=== PATIENT | male | born 1955 | race Caucasian/White ===

== ENCOUNTER 2021-01-09 08:45 | Outpatient (REF) | payer BC, SELFPAY ==
[2021-01-09 09:12] LABS: MANUAL DIFF FLAG NO
[2021-01-09 09:24] LABS: Basophils Percent Auto 0.8 % (0-2); Eosinophils Absolute Auto 0.2 X10*3/uL (0.0-0.4); Eosinophils Percent Auto 3.8 % (0-4); Hematocrit 45.3 % (42-52); Hemoglobin 15.4 g/dl (14.0-18.0); Imm Gran Abs Auto 0.01 X10*3/uL (0.00-0.03); Imm Gran Pct Auto 0.2 % (0.0-0.4); Lymphocytes Absolute Auto 1.4 X10*3/uL (1.2-4.9); Lymphocytes Percent Auto 26.9 % (20-40); Mean Corpuscular Volume 91.3 fL (80-98); Mean Platelet Volume 9.8 fL (9.4-12.4); Monocytes Absolute Auto 0.5 X10*3/uL (0.1-1.2); Monocytes Percent Auto 8.7 % (2-11); Neutrophils Absolute Auto 3.2 X10*3/uL (2.0-8.3); Neutrophils Percent Auto 59.6 % (45-73); Platelet Count 182 X10*3/uL (160-400); Red Blood Count 4.96 X10*6/uL (4.60-5.80); White Blood Count 5.3 X10*3/uL (4.8-10.8)
[2021-01-09 09:48] LABS: Alanine Aminotransferase 22 U/L (0-40); Albumin Level 4.2 g/dL (3.5-5.0); Alkaline Phosphatase 52 U/L (39-117); Anion Gap 10 (12-20); Aspartate Amino Transferase 16 U/L (5-37); Bilirubin Total 0.8 mg/dL (0.0-1.0); Blood Urea Nitrogen 13 mg/dL (9-16); Calcium 9.2 mg/dL (8.4-10.2); Carbon Dioxide 28 mmol/L (22-29); Chloride 106 mmol/L (96-108); Cholesterol 168 mg/dL; Estimated Glomerular Filt Rate > 60; Glucose Fasting 105 mg/dL (60-99); HDL Cholesterol 58 mg/dL; LDL Cholesterol Calculated 99 mg/dl; Potassium 4.1 mmol/L (3.3-5.1); Sodium 140 mmol/L (135-145); Total Protein 7.1 g/dL (6.5-8.0); Triglycerides 56 mg/dL
[2021-01-09 10:13] LABS: Prostate Specific Antigen Scr 2.39 ng/mL (<0.05-4.0); Thyroid Stimulating Hormone 1.46 uIU/mL (0.32-4.0)
== END 2021-01-09 08:46 | disposition home or self-care (01) ==
LOC: HO.LAB 08:45
PROVIDERS: PCP Internal Medicine; Visit Provider Internal Medicine
DX: Z00.00 Encounter for general adult medical examination without abnormal findings (principal); Z12.5 Encounter for screening for malignant neoplasm of prostate; E03.9 Hypothyroidism, unspecified; R35.1 Nocturia; E11.9 Type 2 diabetes mellitus without complications
CPT/HCPCS: 36415; 80053; 80061; 84153; 84443; 85025

== ENCOUNTER 2022-01-25 09:35 | Outpatient (REF) | payer BC, SELFPAY ==
[2022-01-25 09:52] LABS: MANUAL DIFF FLAG NO
[2022-01-25 10:31] LABS: Basophils Absolute Auto 0.1 X10*3/uL (0.0-0.2); Eosinophils Absolute Auto 0.2 X10*3/uL (0.0-0.4); Eosinophils Percent Auto 3.2 % (0-4); Hematocrit 47.1 % (42.0-52.0); Hemoglobin 15.7 g/dl (14.0-18.0); Imm Gran Abs Auto 0.01 X10*3/uL (0.00-0.03); Imm Gran Pct Auto 0.2 % (0.0-0.4); Lymphocytes Absolute Auto 1.5 X10*3/uL (1.2-4.9); Mean Corpuscular HGB Conc 33.3 g/dl (31.0-36.0); Mean Corpuscular Hemoglobin 30.2 pg (27.0-33.0); Mean Corpuscular Volume 90.6 fL (80.0-98.0); Mean Platelet Volume 9.8 fL (9.4-12.4); Monocytes Absolute Auto 0.4 X10*3/uL (0.1-1.2); Monocytes Percent Auto 7.6 % (2-11); Neutrophils Absolute Auto 2.9 x10*3/uL (2.0-8.3); Platelet Count 199 X10*3/uL (160-400); Red Cell Distribution Width 11.9 % (11.0-16.0)
[2022-01-25 11:09] LABS: Alanine Aminotransferase 18 U/L (0-40); Albumin Level 4.5 g/dL (3.5-5.0); Alkaline Phosphatase 53 U/L (39-117); Anion Gap 16 (12-20); Aspartate Amino Transferase 15 U/L (5-37); Blood Urea Nitrogen 16 mg/dL (9-16); Calcium 9.5 mg/dL (8.4-10.2); Carbon Dioxide 25 mmol/L (22-29); Chloride 105 mmol/L (96-108); Cholesterol 181 mg/dL; Estimated Glomerular Filt Rate > 60; Glucose Fasting 98 mg/dL (60-99); HDL Cholesterol 59 mg/dL; LDL Cholesterol Calculated 113 mg/dl; Potassium 4.5 mmol/L (3.3-5.1); Sodium 141 mmol/L (135-145); Total Protein 7.5 g/dL (6.5-8.0); Triglycerides 48 mg/dL
[2022-01-25 11:16] LABS: Prostate Specific Antigen Scr 2.39 ng/mL (<0.05-4.0)
== END 2022-01-25 09:36 | disposition home or self-care (01) ==
LOC: HO.LAB 09:35
PROVIDERS: PCP Internal Medicine; Visit Provider Internal Medicine
DX: Z00.00 Encounter for general adult medical examination without abnormal findings (principal); I10 Essential (primary) hypertension; E78.5 Hyperlipidemia, unspecified; E03.9 Hypothyroidism, unspecified; Z13.0 Encounter for screening for diseases of the blood and blood-forming organs and certain disorders involving the immune mechanism; Z12.5 Encounter for screening for malignant neoplasm of prostate
CPT/HCPCS: 36415; 80053; 80061; 84153; 84443; 85025

== ENCOUNTER 2022-03-01 15:34 | Outpatient (REF) | payer BC, SELFPAY ==
--- NOTE | ~2022-03-01 | US_ITS ---
EXAMINATION: US SCROTUM CLINICAL INFORMATION: Lower abdominal pain, unspecified. COMPARISON: None TECHNIQUE: A sonogram of the scrotum was performed assessing lincoln-scale appearance and color Doppler flow. Spectral Doppler analysis of the arterial and venous flow were performed in the testes bilaterally. FINDINGS: RIGHT: Right testicle measures 4.3 x 2.2 x 3.2 cm, volume 15.6 mL. No focal testicular parenchymal lesions are visualized. Spectral Doppler analysis of the arterial and venous flow is normal in the right testis. Right epididymal head is normal in size. A 0.4 cm appendix testis is noted. No right varicocele is seen. Right epididymal Doppler flow is normal. There is a moderate size hydrocele with internal echogenic debris. LEFT: Left testicle measures 4.2 x 2.7 x 3.0 cm, volume 17.5 mL. There is a 0.1 cm hyperechoic focus in the testicular parenchyma, likely representing a calcification. Spectral Doppler analysis of the arterial and venous flow is normal in the left testis. Left epididymal head is normal in size. There is a 0.3 cm appendix testis. Left epididymal Doppler flow is normal. There is a small to moderate size hydrocele with internal echogenic debris. There is a small varicocele. US/US scrotum IMPRESSION: 1. No evidence of testicular torsion at the moment of this examination. 2. Small hyperechoic focus in the left testicular parenchyma, possibly a calcification, recommend a follow-up ultrasound in 6-12 months to reassess. 3. Moderate-sized bilateral hydroceles with internal echogenic debris. Recommend clinical correlation for superimposed infection. 4. Small left varicocele. 5. Bilateral appendix testes.
== END 2022-03-01 15:35 | disposition home or self-care (01) ==
LOC: HO.US 15:34
PROVIDERS: Visit Provider Internal Medicine
DX: R10.30 Lower abdominal pain, unspecified (principal)
CPT/HCPCS: 76870

== ENCOUNTER 2023-01-16 09:39 | Outpatient (AMB) | payer BC, SELFPAY ==
--- NOTE | 2023-01-16 09:47 | MHC.PC.OV ---
Vital Signs 01/16/23 09:48 Height 5 ft 4 in Weight 169 lb 2 oz BMI 29.0 BP 110/72 Blood Pressure Location Lt brachial Position Sitting Pulse 78 Pulse Source Pulse Oximeter Pulse Oximetry (%) 98 Oxygen Delivery Method Room Air Intake Visit Reasons: PE Intake Note: Patient is here today for a physical. Book Editor Required: No District Administrative Assistant: Not Required per policy Accompanied by: Self / Same As Patient Allergies penicillin V Allergy (Unknown, Verified 01/16/23 09:48) severe diarrhea Medication List - Last Reconciled 01/17/23 by Catrachito Wayne MD clotrimazole 1% 1 appl topical BID 4 weeks clotrimazole-betamethasone 1-0.05 % 1 appl topical BID 2 weeks Tobacco use date assessed: 01/16/23 Fall risk assessment: No Falls in past year Last assessed Fall Risk: 01/16/23 Dental Screening Dental Screen Date: 01/16/23 Did you have a dental visit in the last 12 months?: No Did you have a dental problem in the last 6 months where you did not have access to dental care?: No Was dental information given to patient?: No HPI PE HPI Details healthy no meds PFSH Surgical History History of colonoscopy History of cochlear implant Family History Mother No problems noted. Father No problems noted. Social History (Updated 01/16/23 @ 09:52 by GERALD Elam) Housing: House Alcohol intake: current Alcohol intake frequency: a few times a month Patient Tobacco Use Status: Never used Tobacco Tobacco use type: Cigarette e-Cigarette/Vaping Use: Never Used Second Hand Smoke Exposure: Yes service: No Current occupational status: retired and disabled Cognitive needs: No Hearing needs: Yes (hearing aide) Vision needs: Yes (glasses) Questionnaire PHQ-9 Over the last 2 weeks, how often have you been bothered by any of the following problems? 1. Little interest or pleasure in doing things: not at all 2. Feeling down, depressed, or hopeless: not at all 3. Trouble falling or staying asleep, or sleeping too much: not at all 4. Feeling tired or having little energy: not at all 5. Poor appetite or overeating: not at all 6. Feeling bad about yourself - or that you are a failure or have let yourself or your family down: not at all 7. Trouble concentrating on things, such as reading the newspaper or watching television: not at all 8. Moving or speaking so slowly that other people could have noticed. Or the opposite - being so fidgety or restless that you have been moving around a lot more than usual: not at all 9. Thoughts that you would be better off or of hurting yourself in some way: not at all Total score: 0 Depression Screening Interpretation: Negative Depression Screening Done: Yes 28394 - PHQ-9 Billing: Yes Source: Developed by Drs. Orville Baum, Veronica Arellano, Dominic Kovacs and colleagues, with an educational mati from [employer]. Thrive Questionnaire Date Thrive assessed: 01/16/23 I am a: Patient What is your living situation today?: I have a steady place to live Within the past 12 months, did the food you bought not last and you didn't have the money to get more?: Never true Within the past 12 months, did you worry whether your food would run out before you got money to buy more?: Never true Do you have trouble paying for medicines?: No Do you have trouble getting transportation to medical appointments?: No Do you have trouble paying your heating and electricity bill?: No Do you have trouble taking care of your child, family member or friend?: No Do you have trouble with day-to-day activities such as bathing, preparing meals, shopping, managing finances, etc.?: No Are you currently unemployed and looking for a job?: No Are you interested in more education?: No Currently or been in a relationship where the following occur: no concerns reported AUDIT C Alcohol Use Questionnaire (AUDIT-C) 1. How often do you have a drink containing alcohol?: Monthly or less 2. How many drinks containing alcohol do you have on a typical day when you are drinking?: 1 or 2 Total Score: 1 Score Reviewed/Action Taken: Yes HAL-7 AMB Questionnaire HLA-7 Date HAL - 7 assessed: 01/16/23 Feeling nervous, anxious, or on edge: 0 = Not at all Not being able to stop or control worryin = Not at all Worrying too much about different things: 0 = Not at all Trouble relaxin = Not at all Being so restless that it is hard to sit still: 0 = Not at all Becoming easily annoyed or irritable: 0 = Not at all Feeling afraid as if something awful might happen: 0 = Not at all Total HAL-7 score (0-4 normal; 5-9 mild; 10-14 moderate; 15-21 severe): 0 Source: Developed by Drs. Orville Baum, Veronica Arellano, Dominic Kovacs and colleagues, with an educational mati from [employer]. HAL-7 Assessment Billing HAL-7 Assessment Tool: HAL-7 Assessment 48287 Review of Systems Const Denies chills, Denies fatigue, Denies headache(s) and Denies weight loss Eyes Denies change in vision, Denies diplopia and Denies eye pain ENT Denies vertigo, Denies dizziness, Denies headache(s) and Denies nasal discharge Card Denies chest pain, Denies rapid heart rate and Denies dyspnea on exertion Resp Denies chest congestion, Denies cough, Denies pain with cough and Denies dyspnea on exertion GI Denies abdominal pain, Denies hematochezia and Denies change in bowel habits Musc Denies myalgias, Denies arthralgias and Denies joint swelling Skin/Breast Denies lesions and Denies unusual bruising Neuro Denies vertigo, Denies dizziness, Denies headache(s) and Denies focal weakness Endo Denies fatigue Physical exam (Primary Care) Vital Signs: Last Vital Signs Pulse 78 01/16/23 09:48 BP 110/72 01/16/23 09:48 Pulse Ox 98 01/16/23 09:48 Oxygen Delivery Method Room Air 01/16/23 09:48 BMI result Body Mass Index 29.0 Tobacco/Smoking Status: Tobacco use Status Tobacco use date assessed 01/16/23 01/16/23 09:53 Patient Tobacco Use Status Never used Tobacco 01/16/23 09:53 Tobacco use type Cigarette 01/16/23 09:53 e-Cigarette/Vaping Use Never Used 01/16/23 09:53 PHQ-9: PHQ-9 Score PHQ-9: Total score 0 01/16/23 09:53 Depression Screening Interpretation: Negative Thrive Assessment: Date of Thrive Assessment Date Thrive assessed 01/16/23 01/16/23 09:53 Currently or been in a relationship where the following occur: no concerns reported Const General: cooperative, healthy appearing and no acute distress Orientation/consciousness: oriented to person, oriented to place and oriented to time HENMT Head: Yes normal to inspection, Yes normocephalic and Yes atraumatic Mouth: Normal oral and palatal mucosa present and tongue normal Throat: Yes posterior oropharynx normal and Yes uvula midline Eyes General: appearance normal, both eyes and all related structures Neck Neck: Yes normal visual inspection, Yes full ROM and Yes no lymphadenopathy Thyroid: Thyroid normal Carotids: normal carotid upstroke Chest Chest palpation & inspection: normal inspection of the chest Resp Effort & Inspection: normal respiratory effort and able to speak in complete sentences Auscultation: clear to auscultation bilaterally Cardio Jugular venous distension: no JVD Palpation: normal PMI Rate: regular rate Rhythm: regular rhythm Heart sounds: S1 normal heart sound present and S2 normal heart sound present GI Inspection: Yes normal to inspection Palpation (GI): Soft to palpation and No hepatosplenomegaly present Auscultation: normal bowel sounds General: Yes no CVA tenderness Back/Spine/Pelvis Back: no CVA tenderness Skin General skin exam: no rashes or lesions noted Neuro General: oriented to person, oriented to place and oriented to time Extrem General: Yes normal to inspection and Yes full ROM Assessment and Plan Assessment & Plan (1) Physical exam: Code(s): Z00.00 - Encounter for general adult medical examination without abnormal findings Plan: do labs Orders: Orders Complete Blood Count Auto Diff 01/16/23 D64.9 - Anemia, unspecified Comprehensive [place]. Panel Fast 01/16/23 N28.9 - Disorder of kidney and ureter, unspecified Lipid Panel 01/16/23 E78.5 - Hyperlipidemia, unspecified Prostate Specific Antigen Scr 01/16/23 Z00.00 - Encounter for general adult medical examination without abnormal findings Referrals Ophthalmology Referral H02.9 - Unspecified disorder of eyelid Coding Level of Care Code Est Pt Prev Care >65y(15802) Diagnoses Physical exam Z00.00 Additional Codes HAL-7 Assessment Billing - HAL-7 Assessment Tool: HAL-7 Assessment [id number] ([id number])
[2023-01-16 09:48] VITALS: BP 110/72; PULSE 78; O2SAT 98; BMI 29.0
== END 2023-01-16 10:01 | disposition home or self-care (01) ==
PROVIDERS: Visit Provider Internal Medicine
DX: Z00.00 Encounter for general adult medical examination without abnormal findings (principal)
CPT/HCPCS: 99397

== ENCOUNTER 2023-02-14 08:45 | Outpatient (AMB) | payer BC, SELFPAY ==
--- NOTE | 2023-02-14 09:32 | MHC.OFFWIV ---
Intake Vital Signs 02/14/23 09:43 Height 5 ft 4 in Weight 169 lb BMI 29.0 BP 132/74 Blood Pressure Location Rt brachial Position Sitting Pulse 96 Pulse Source Pulse Oximeter Temp 96.8 F Temp Source Temporal Artery Scan Pulse Oximetry (%) 100 Oxygen Delivery Method Room Air Intake Visit Reasons: EP, Piece of cotton stuck in left ear Intake Note: Pt is here c/o possible cotton ball stuck in his left ear. Patient Tobacco Use Status: Never used Tobacco Allergies penicillin V Allergy (Unknown, Verified 02/14/23 09:32) severe diarrhea HPI HPI Comments History of Present Illness Details This is a 67-year-old male presenting to the office complaining of a foreign body in his left ear. He states he was using a Q-tip 3 days ago and when he removed the Q-tip, the cotton was missing. He states he has been utilizing his hearing aids since then has not really noticed any ear pain or hearing loss. He denies any drainage from the ear. FOR[facility], [facility] Surgical History History of colonoscopy History of cochlear implant Family History Mother No problems noted. Father No problems noted. Social History (Updated 01/16/23 @ 09:52 by GERALD Elam) Housing: House Alcohol intake: current Alcohol intake frequency: a few times a month Patient Tobacco Use Status: Never used Tobacco Tobacco use type: Cigarette e-Cigarette/Vaping Use: Never Used Second Hand Smoke Exposure: Yes service: No Current occupational status: retired and disabled Cognitive needs: No Hearing needs: Yes (hearing aide) Vision needs: Yes (glasses) Review of Systems Const All systems reviewed & are unremarkable except as noted in HPI and below Reports no additional complaints Eyes Reports no additional complaints ENT Reports no additional complaints Card Reports no additional complaints Resp Reports no additional complaints GI Reports no additional complaints Reports no additional complaints Musc Reports no additional complaints Skin/Breast Reports system reviewed and no additional complaints, except as documented Neuro Reports no additional complaints Psych Reports no additional complaints Endo Reports no additional complaints Canelo/Lymph Reports no additional complaints Aller/Immun Reports no additional complaints Physical Exam Vital Signs: Last Vital Signs Temp 96.8 F 02/14/23 09:43 Pulse 96 12/01/23 09:43 BP 132/74 02/14/23 09:43 Pulse Ox 100 02/14/23 09:43 Oxygen Delivery Method Room Air 02/14/23 09:43 BMI result Body Mass Index 29.0 Const Other: Vital signs reviewed. Constitutional: Non-toxic appearing. No acute distress. Well-developed and well-nourished. HEENT: Normocephalic and atraumatic. The right tympanic membrane is without erythema, edema, or bulging bilaterally in the right external auditory canal is within normal limits. The left occiput terminal auditory canal has mild erythema without edema and there is a wad of cotton obstructing the tympanic membrane. Skin: Warm and dry. No rashes or lesions noted. Neck: Full and painless range of motion. No cervical lymphadenopathy. Cardio: Regular rate. No lower extremity edema. No JVD. Pulmonary: No respiratory distress. No accessory muscle usage. Gastrointestinal: Soft, nontender, and nondistended in all 4 quadrants. Musculoskeletal: Normal range of motion in joints throughout the body. No deformity or other signs of injury. Neuro: Alert and oriented x4. Cranial nerves 2-12 grossly intact. No focal deficits appreciated. Psych: Normal mood and affect. Office Procedures Foreign Body Removal 23670 - Foreign body removal, external auditory canal Procedure code (CPT) selection complete Assessment & Plan Assessment & Plan (1) Foreign body in left ear: Code(s): T16.2XXA - Foreign body in left ear, initial encounter Plan: This is a 67-year-old male presenting to the office complaining of a foreign body in his left ear. Patient believes there is cotton from a Q-tip stuck in his left ear. On physical examination, there is a wad of cotton obstructing the left tympanic membrane. The left ear was irrigated and the cotton was pushed closer to the external auditory canal. The cotton was then removed with tweezers without difficulty. upon reexamination, his left tympanic membrane is within normal limits without erythema, edema, bulging and there is mild erythema of the left external auditory canal. Patient was sent home with neomycin/ polymyxin / hydrocortisone ear drops x5 days to prevent infection/ swelling. Patient was advised to avoid use of Q-tips in the future. Patient verbalizes understanding and he is in agreement with the plan. Medications: New qudfhjkt-cpbkyspxj-IN 3.5-10,000-1 mg/mL-unit/mL-% 4 drps otic (ear) left TID 5 days 10 mL 0RF Coding Level of Care Code Est Pt Level 3 (46646) Diagnoses Foreign body in left ear T16.2XXA
[2023-02-14 09:43] VITALS: BP 132/74; PULSE 96; TEMP 36; O2SAT 100; BMI 29.0
== END 2023-02-14 10:41 | disposition home or self-care (01) ==
PROVIDERS: PCP Internal Medicine; Visit Provider Physician Assistant Medical
DX: T16.2XXA Foreign body in left ear, initial encounter (principal)
CPT/HCPCS: 69200; 99213

== ENCOUNTER 2023-03-06 10:13 | Outpatient (REF) | payer BC, SELFPAY ==
[2023-03-06 13:19] LABS: MANUAL DIFF FLAG NO
[2023-03-06 13:37] LABS: Basophils Absolute Auto 0.1 X10*3/uL (0.0-0.2); Eosinophils Absolute Auto 0.2 X10*3/uL (0.0-0.4); Eosinophils Percent Auto 3.4 % (0-4); Hematocrit 46.3 % (42.0-52.0); Hemoglobin 15.9 g/dl (14.0-18.0); Imm Gran Abs Auto 0.01 X10*3/uL (0.00-0.03); Imm Gran Pct Auto 0.2 % (0.0-0.4); Lymphocytes Absolute Auto 1.3 X10*3/uL (1.2-4.9); Lymphocytes Percent Auto 26.4 % (20-40); Mean Corpuscular HGB Conc 34.3 g/dl (31.0-36.0); Mean Corpuscular Hemoglobin 31.1 pg (27.0-33.0); Mean Corpuscular Volume 90.4 fL (80.0-98.0); Mean Platelet Volume 10.4 fL (9.4-12.4); Monocytes Absolute Auto 0.4 X10*3/uL (0.1-1.2); Monocytes Percent Auto 7.4 % (2-11); Neutrophils Absolute Auto 3.1 x10*3/uL (2.0-8.3); Neutrophils Percent Auto 61.6 % (45-73); Platelet Count 182 X10*3/uL (160-400); Red Blood Count 5.12 X10*6/uL (4.60-5.80); Red Cell Distribution Width 11.9 % (11.0-16.0)
[2023-03-06 13:51] LABS: Alanine Aminotransferase 19 U/L (0-40); Albumin Level 4.2 g/dL (3.5-5.0); Alkaline Phosphatase 51 U/L (39-117); Anion Gap 12 (12-20); Aspartate Amino Transferase 15 U/L (5-37); Bilirubin Total 0.8 mg/dL (0.0-1.0); Blood Urea Nitrogen 18 mg/dL (9-16); Calcium 9.4 mg/dL (8.4-10.2); Carbon Dioxide 28 mmol/L (22-29); Chloride 105 mmol/L (96-108); Cholesterol 160 mg/dL (<200); Estimated Glomerular Filt Rate > 60; Glucose Fasting 95 mg/dL (60-99); HDL Cholesterol 65 mg/dL (>40); LDL Cholesterol Calculated 82 mg/dL (<100); Potassium 3.8 mmol/L (3.3-5.1); Sodium 141 mmol/L (135-145); Total Protein 7.4 g/dL (6.5-8.0); Triglycerides 65 mg/dL (<150)
== END 2023-03-06 10:14 | disposition home or self-care (01) ==
LOC: HO.HMGCLDS 10:13
PROVIDERS: PCP Internal Medicine; Visit Provider Internal Medicine
DX: Z00.00 Encounter for general adult medical examination without abnormal findings (principal); Z12.5 Encounter for screening for malignant neoplasm of prostate; N28.9 Disorder of kidney and ureter, unspecified; D64.9 Anemia, unspecified; E78.5 Hyperlipidemia, unspecified
CPT/HCPCS: 36415; 80053; 80061; 84153; 85025

== ENCOUNTER 2024-01-19 10:57 | Outpatient (AMB) | payer BC, SELFPAY ==
[2024-01-19 11:02] VITALS: BP 130/68; PULSE 88; O2SAT 95; BMI 28.9
--- NOTE | 2024-01-19 11:02 | MHC.PC.OV ---
Vital Signs 01/19/24 11:02 Height 5 ft 4 in Weight 168 lb 6 oz BMI 28.9 BP 130/68 Blood Pressure Location Lt brachial Position Sitting Pulse 88 Pulse Source Pulse Oximeter Pulse Oximetry (%) 95 Oxygen Delivery Method Room Air Intake Visit Reasons: PE Intake Note: Patient is here today for a physical. Pt decline flu shot today. Glass Beveler Required: No Wildlife Technician: Not Required per policy Accompanied by: Self / Same As Patient Allergies penicillin V Allergy (Unknown, Verified 02/14/23 09:32) severe diarrhea Medication List - Last Reconciled 01/20/24 by Catrachito Wayne MD clotrimazole 1% 1 appl topical BID 4 weeks clotrimazole-betamethasone 1-0.05 % 1 appl topical BID 2 weeks ojwjlwle-axw-fdmox-vit K-lycop 400-20-300 mcg (One-A-Day Men's Multivitamin) 1 tab PO DAILY dbfwxfye-gbmkxqota-FT 3.5-10,000-1 mg/mL-unit/mL-% 4 drps otic (ear) left TID 5 days Tobacco use date assessed: 01/19/24 Fall risk assessment: No Falls in past year Last assessed Fall Risk: 01/19/24 Dental Screening Dental Screen Date: 01/19/24 Did you have a dental visit in the last 12 months?: Yes Did you have a dental problem in the last 6 months where you did not have access to dental care?: No Was dental information given to patient?: Patient has dentist HPI PE HPI Details healthy PFSH Surgical History History of colonoscopy History of cochlear implant Family History Mother No problems noted. Father No problems noted. Social History Housing: House Alcohol intake: current Alcohol intake frequency: a few times a month Patient Tobacco Use Status: Never used Tobacco Tobacco use type: Cigarette e-Cigarette/Vaping Use: Never Used Second Hand Smoke Exposure: Yes service: No Current occupational status: retired and disabled Cognitive needs: No Hearing needs: Yes (hearing aide) Vision needs: Yes (glasses) Questionnaire PHQ-9 Over the last 2 weeks, how often have you been bothered by any of the following problems? 1. Little interest or pleasure in doing things: more than half the days 2. Feeling down, depressed, or hopeless: not at all 3. Trouble falling or staying asleep, or sleeping too much: not at all 4. Feeling tired or having little energy: not at all 5. Poor appetite or overeating: not at all 6. Feeling bad about yourself - or that you are a failure or have let yourself or your family down: not at all 7. Trouble concentrating on things, such as reading the newspaper or watching television: not at all 8. Moving or speaking so slowly that other people could have noticed. Or the opposite - being so fidgety or restless that you have been moving around a lot more than usual: not at all 9. Thoughts that you would be better off or of hurting yourself in some way: not at all Total score: 2 Depression Screening Interpretation: Positive Depression Screening Done: Yes Source: Developed by Drs. Orville Baum, Veronica Arellano, Dominic Kovacs and colleagues, with an educational mati from [employer] Thrive Questionnaire Date Thrive assessed: 01/19/24 I am a: Patient What is your living situation today?: I have a steady place to live Within the past 12 months, did the food you bought not last and you didn't have the money to get more?: Never true Within the past 12 months, did you worry whether your food would run out before you got money to buy more?: Never true Do you have trouble paying for medicines?: No Do you have trouble getting transportation to medical appointments?: No Do you have trouble paying your heating and electricity bill?: No Do you have trouble taking care of your child, family member or friend?: No Do you have trouble with day-to-day activities such as bathing, preparing meals, shopping, managing finances, etc.?: No Are you currently unemployed and looking for a job?: No Are you interested in more education?: No Please select the resources that you would like help with: None Currently or been in a relationship where the following occur: No concerns reported THRIVE Score: 0 AUDIT C Alcohol Use Questionnaire (AUDIT-C) 1. How often do you have a drink containing alcohol?: 2-4 times a month 2. How many drinks containing alcohol do you have on a typical day when you are drinking?: 1 or 2 3. How often do you have six or more drinks on one occasion?: Never Total Score: 2 HAL-7 AMB Questionnaire HAL-7 Date HAL - 7 assessed: 01/16/23 Feeling nervous, anxious, or on edge: 0 = Not at all Not being able to stop or control worryin = Not at all Worrying too much about different things: 0 = Not at all Trouble relaxin = Not at all Being so restless that it is hard to sit still: 0 = Not at all Becoming easily annoyed or irritable: 0 = Not at all Feeling afraid as if something awful might happen: 0 = Not at all Total HAL-7 score (0-4 normal; 5-9 mild; 10-14 moderate; 15-21 severe): 0 Source: Developed by Drs. Orville Baum, Veronica Arellano, Dominic Kovacs and colleagues, with an educational mati from [employer] Review of Systems Const Denies chills, Denies fatigue, Denies headache(s) and Denies weight loss Eyes Denies change in vision, Denies diplopia and Denies eye pain ENT Denies vertigo, Denies dizziness, Denies headache(s) and Denies nasal discharge Card Denies chest pain, Denies rapid heart rate and Denies dyspnea on exertion Resp Denies chest congestion, Denies cough, Denies pain with cough and Denies dyspnea on exertion GI Denies abdominal pain, Denies hematochezia and Denies change in bowel habits Musc Denies myalgias, Denies arthralgias and Denies joint swelling Skin/Breast Denies lesions and Denies unusual bruising Neuro Denies vertigo, Denies dizziness, Denies headache(s) and Denies focal weakness Endo Denies fatigue Physical exam (Primary Care) Vital Signs: Last Vital Signs Pulse 88 01/19/24 11:02 BP 130/68 01/19/24 11:02 Pulse Ox 95 01/19/24 11:02 Oxygen Delivery Method Room Air 01/19/24 11:02 BMI result Body Mass Index 28.9 Tobacco/Smoking Status: Tobacco use Status Tobacco use date assessed 01/19/24 01/19/24 11:07 Patient Tobacco Use Status Never used Tobacco 01/19/24 11:07 Tobacco use type Cigarette 01/19/24 11:07 e-Cigarette/Vaping Use Never Used 01/19/24 11:07 PHQ-9: PHQ-9 Score PHQ-9: Total score 2 01/19/24 11:07 Depression Screening Interpretation: Positive Thrive Assessment: Date of Thrive Assessment Date Thrive assessed 01/19/24 01/19/24 11:07 Currently or been in a relationship where the following occur: No concerns reported Const General: cooperative, healthy appearing and no acute distress Orientation/consciousness: oriented to person, oriented to place and oriented to time HENMT Head: Yes normal to inspection, Yes normocephalic and Yes atraumatic Mouth: Normal oral and palatal mucosa present and tongue normal Throat: Yes posterior oropharynx normal and Yes uvula midline Eyes General: appearance normal, both eyes and all related structures Neck Neck: Yes normal visual inspection, Yes full ROM and Yes no lymphadenopathy Thyroid: Thyroid normal Carotids: normal carotid upstroke Chest Chest palpation & inspection: normal inspection of the chest Resp Effort & Inspection: normal respiratory effort and able to speak in complete sentences Auscultation: clear to auscultation bilaterally Cardio Jugular venous distension: no JVD Palpation: normal PMI Rate: regular rate Rhythm: regular rhythm Heart sounds: S1 normal heart sound present and S2 normal heart sound present GI Inspection: Yes normal to inspection Palpation (GI): Soft to palpation and No hepatosplenomegaly present Auscultation: normal bowel sounds General: Yes no CVA tenderness Back/Spine/Pelvis Back: no CVA tenderness Skin General skin exam: no rashes or lesions noted Neuro General: oriented to person, oriented to place and oriented to time Extrem General: Yes normal to inspection and Yes full ROM Coding Level of Care Code Est Pt Prev Care >65y(51947) Diagnoses Physical exam Z00.00 Assessment & Plan Assessment & Plan (1) Physical exam: Code(s): Z00.00 - Encounter for general adult medical examination without abnormal findings Category: Medical Plan: healthy; do labs Medications: Refilled clotrimazole-betamethasone 1-0.05 % 1 appl topical BID 45 grams 0RF 2 weeks
== END 2024-01-19 11:36 | disposition home or self-care (01) ==
LOC: HO.HMCH 10:59
PROVIDERS: PCP Internal Medicine; Visit Provider Internal Medicine
DX: Z00.00 Encounter for general adult medical examination without abnormal findings (principal)

== ENCOUNTER → 2024-01-19 10:57 | Outpatient (BNVA) | payer BC, SELFPAY | PROVIDERS: PCP Internal Medicine; Visit Provider Internal Medicine ==

== ENCOUNTER 2025-01-05 14:25 | Outpatient (AMB) | payer BC, SELFPAY ==
--- NOTE | 2025-01-05 14:32 | A.OFFPC_ITS ---
Vital Signs 01/05/25 14:33 Height 5 ft 4 in Weight 166 lb 4 oz BMI 28.5 BP 120/82 Blood Pressure Location Lt brachial Position Sitting Pulse 110 H Pulse Source Pulse Oximeter Temp 97.3 F Temp Source Temporal Artery Scan Pulse Oximetry (%) 96 Oxygen Delivery Method Room Air Intake Visit Reasons: Annual physical Intake Note: Patient is here today for a physical. College Athlete Required: No Direct Care Staffer: Not Required per policy Accompanied by: Self / Same As Patient Allergies penicillin V Allergy (Unknown, Verified 01/05/25 14:32) severe diarrhea Tobacco use date assessed: 01/05/25 Fall risk assessment: No Falls in past year Last assessed Fall Risk: 01/05/25 Dental Screening Dental Screen Date: 01/05/25 Did you have a dental visit in the last 12 months?: Yes Did you have a dental problem in the last 6 months where you did not have access to dental care?: No Was dental information given to patient?: Patient has dentist [facility] Surgical History History of colonoscopy History of cochlear implant Family History Mother No problems noted. Father No problems noted. Social History Housing: House Alcohol intake: current Alcohol intake frequency: a few times a month Patient Tobacco Use Status: Never used Tobacco Tobacco use type: Cigarette e-Cigarette/Vaping Use: Never Used Second Hand Smoke Exposure: Yes service: No Current occupational status: retired and disabled Cognitive needs: No Hearing needs: Yes (hearing aide) Vision needs: Yes (glasses) Questionnaire PHQ-9 Over the last 2 weeks, how often have you been bothered by any of the following problems? 1. Little interest or pleasure in doing things: not at all 2. Feeling down, depressed, or hopeless: not at all 3. Trouble falling or staying asleep, or sleeping too much: not at all 4. Feeling tired or having little energy: not at all 5. Poor appetite or overeating: not at all 6. Feeling bad about yourself - or that you are a failure or have let yourself or your family down: not at all 7. Trouble concentrating on things, such as reading the newspaper or watching television: not at all 8. Moving or speaking so slowly that other people could have noticed. Or the opposite - being so fidgety or restless that you have been moving around a lot more than usual: not at all 9. Thoughts that you would be better off or of hurting yourself in some way: not at all Total score: 0 Depression Screening Interpretation: Negative Depression Screening Done: Yes Source: Developed by Drs. Orville Baum, Veronica Arellano, Dominic Kovacs and colleagues, with an educational mati from Patient [employer]. Thrive Questionnaire Date Thrive assessed: 01/05/25 I am a: Patient What is your living situation today?: I have a steady place to live Within the past 12 months, did the food you bought not last and you didn't have the money to get more?: Never true Within the past 12 months, did you worry whether your food would run out before you got money to buy more?: I choose not to answer this question Do you have trouble paying for medicines?: No Do you have trouble getting transportation to medical appointments?: No Do you have trouble paying your heating and electricity bill?: I choose not to answer this question Do you have trouble taking care of your child, family member or friend?: No Do you have trouble with day-to-day activities such as bathing, preparing meals, shopping, managing finances, etc.?: No Are you currently unemployed and looking for a job?: No Are you interested in more education?: No Please select the resources that you would like help with: None Currently or been in a relationship where the following occur: No concerns reported THRIVE Score: 0 AUDIT C Alcohol Use Questionnaire (AUDIT-C) 1. How often do you have a drink containing alcohol?: 2-3 times a week 2. How many drinks containing alcohol do you have on a typical day when you are drinking?: 1 or 2 3. How often do you have six or more drinks on one occasion?: Weekly Total Score: 6 HAL-7 AMB Questionnaire HAL-7 Date HAL - 7 assessed: 01/05/25 Feeling nervous, anxious, or on edge: 0 = Not at all Not being able to stop or control worryin = Not at all Worrying too much about different things: 0 = Not at all Trouble relaxin = Not at all Being so restless that it is hard to sit still: 0 = Not at all Becoming easily annoyed or irritable: 0 = Not at all Feeling afraid as if something awful might happen: 0 = Not at all Total HAL-7 score (0-4 normal; 5-9 mild; 10-14 moderate; 15-21 severe): 0 Source: Developed by Drs. Orville Baum, Veronica Arellano, Dominic Kovacs and colleagues, with an educational mati from Patient Feed. Physical exam (Primary Care) Vital Signs: Last Vital Signs Temp 97.3 F 01/05/25 14:33 Pulse 110 H 01/05/25 14:33 BP 120/82 01/05/25 14:33 Pulse Ox 96 01/05/25 14:33 Oxygen Delivery Method Room Air 01/05/25 14:33 BMI result Body Mass Index 28.5 Tobacco/Smoking Status: Tobacco use Status Tobacco use date assessed 01/05/25 01/05/25 14:39 Patient Tobacco Use Status Never used Tobacco 01/05/25 14:39 Tobacco use type Cigarette 01/05/25 14:39 e-Cigarette/Vaping Use Never Used 01/05/25 14:39 PHQ-9: PHQ-9 Score PHQ-9: Total score 0 01/05/25 14:39 Depression Screening Interpretation: Negative Thrive Assessment: Date of Thrive Assessment Date Thrive assessed 01/05/25 01/05/25 14:39 Currently or been in a relationship where the following occur: No concerns reported Coding Level of Care Code Est Pt Prev Care >65y(08321) Diagnoses Physical exam Z00.00 Assessment & Plan Assessment & Plan (1) Physical exam: Code(s): Z00.00 - Encounter for general adult medical examination without abnormal findings Category: Medical Plan: History of Present Illness - The patient is a 69-year-old male presenting with a physical examination and concerns about varicose veins and dry eye. - Varicose veins: The patient has varicose veins on the right leg, which are described as an accumulation of veins. He expressed concern about potential complications, but was reassured that there is no immediate risk of rupture. - Venous malformations: The patient also has venous malformations, likely hemangiomas, which he has had since . - Dry eye: The patient reports experiencing dry eye and seeing a spot in his vision for the past few weeks. He has not seen an eye doctor in five years and was advised to schedule an appointment for further evaluation. - Preventative care: The patient had a colonoscopy nine years ago and is due for another. He prefers to have a colonoscopy rather than a Cologuard test. A referral to Dr. Huizar for the procedure was agreed upon. - Preventative care: The patient is considering a shingles vaccination and agreed to receive it at his pharmacy. - Preventative care: Blood work, including PSA, was ordered, and the patient was instructed to go to the lab fasting. - Rash: The patient occasionally experiences a rash for which he uses clotrimazole cream, which he finds effective. Social History - Employment: The patient is retired and previously worked as a nurse's aide at [employer]. - Substance use: The patient denies tobacco use and reports consuming alcohol, approximately two drinks per week. Review of Systems - Ophthalmologic: Reports dry eye and a persistent spot in vision for the past few weeks. - Dermatologic: Reports occasional rash. - General: Denies any other specific concerns or symptoms. Physical Exam General: Cooperative and healthy appearing Nutritional Appearance: Well nourished Orientation/consciousness: Patient oriented x3 Limitations: No limitations Head: Normal to inspection General: Appearance normal, both eyes and all related structures Neck: Normal visual inspection Chest: Normal palpation of entire chest wall Respiratory: Normal respiratory effort Neurology: Patient oriented x3 Results Plan - Referral for colonoscopy: The patient prefers a colonoscopy over Cologuard for colon cancer screening. A referral to Dr. Huizar was agreed upon. - Shingles vaccination: The patient agreed to receive the shingles vaccine at his pharmacy. - Blood work: Ordered including PSA, with instructions to go to the lab fasting. - Ophthalmology referral: Advised to see an eye doctor for evaluation of dry eye and persistent spot in vision. - Rash management: Continue using clotrimazole cream as needed for rash. Discussion Notes I discussed with the patient the importance of colon cancer screening and the options available, including colonoscopy and Cologuard. The patient opted for a colonoscopy, and I agreed to make a referral to Dr. Huizar. We also talked about the shingles vaccine, and the patient agreed to receive it at his pharmacy. I advised the patient to see an eye doctor for the persistent spot in his vision a nd dry eye symptoms. Additionally, I ordered blood work, including PSA, and instructed the patient to go to the lab fasting. We discussed the use of clotrimazole cream for his rash, which he finds effective. Patient Instructions - Schedule a colonoscopy with Dr. Huizar as discussed. - Visit your pharmacy to receive the shingles vaccine. - Go to the lab for blood work, including PSA, and ensure you are fasting. - Make an appointment with an eye doctor to evaluate the persistent spot in your vision and dry eye symptoms. - Continue using clotrimazole cream as needed for rash. Orders: Orders Basic Metabolic Panel Today Z00.00 - Encounter for general adult medical examination without abnormal findings Lipid Panel Today Z00.00 - Encounter for general adult medical examination without abnormal findings Thyroid Stimulating Hormone Today Z00.00 - Encounter for general adult medical examination without abnormal findings Complete Blood Count no Diff Today Z00.00 - Encounter for general adult medical examination without abnormal findings Liver Panel Today Z00.00 - Encounter for general adult medical examination without abnormal findings UA and rflx microscopic Today Z00.00 - Encounter for general adult medical examination without abnormal findings Prostate Specific Antigen Scr Today Z00.00 - Encounter for general adult medical examination without abnormal findings Referrals Gastroenterology Referral Z12.11 - Encounter for screening for malignant neoplasm of colon Medications: New varicella-zoster gE-AS01B (PF) 50 mcg/0.5 mL (Shingrix (PF)) 50 mcg IM ONCE 1 ea 0RF Refilled clotrimazole-betamethasone 1-0.05 % 1 appl topical BID 45 grams 0RF 2 weeks
[2025-01-05 14:33] VITALS: BP 120/82; PULSE 110; TEMP 36.3; O2SAT 96; BMI 28.5
--- OUTSIDE RECORDS SUMMARY | 2025-01-05 20:37 | XMS_ITS | Clinical Summary ---
Author Organization [facility] Address [address] [place] [address] Care Team Providers Care Transverse Abdominal Muscle Nurse Name Role Phone Unavailable Primary Care Provider Unavailabl e Social History Tobacco Use Types Packs/Day Years Used Date Smoking Tobacco: Never Assessed Sex and Gender Information Value Date Recorded Sex Assigned at Not on file Gender Identity Not on file Sexual Orientation Not on file Plan of Treatment Not on file
--- OUTSIDE RECORDS SUMMARY | 2025-01-05 20:37 | XMS_ITS | Patient Health Record ---
Author Organization [facility] Address [address] [place] [id number] Care Team Providers Care Shop Fitter Name Role Phone Oscar Rodriguez MD Primary Care Provider Orville Reyes [phone] Allergies Allergen (clinical drug ingredient) Drug/Non Drug Allergy documented on EMR Reaction Allergy Type Onset Date Status Penicillin Unknown Drug Allergy Active Reason For Referral No Information Medications Medication SIG (Take, Route, Frequency, Duration) Notes Start Date End Date Status MoviPrep 100 GM as directed Orally a s directed; Duration: 1 dose 10/09/2014 Active Meclizine HCl 25 MG 1 tablet as needed O rally Once a day Active Fluticasone Propionate 50 MCG/ACT 1 spray in each nostril Nasally Once a day 10/07/2014 Active Problems Problem Type SNOMED Code ICD Code Onset Dates Problem Status W/U Status Risk Notes Problem Colon cancer screening (487509364) Colon cancer screening (V76.51) Active confirmed Problem History of adenomatous polyp of colon (218482663) History of adenomatous polyp of colon (V12.72) Active confirmed Plan Of Treatment Pending Test Test Name Order Date GI BIOPSY 12/21/2014 Future Test Test Name Order Date COLONOSCOPY 10/07/2014 Insurance Providers Payer Name Payer Address Payer Phone Subscriber Number Group Number Insured Name Patient Relationship to Insured Coverage Start Date Coverage End Date [facility] [place] [employer] [place] [address] [place] [address] [id number] Self - patient is the insured Medical (General) History Medical History History ICD Code 1 Tubular adenoma removed in 1993; colonoscopies in 1997 and 2009 neg. except for hyperplastic polyps, diverticulosis, and internal hemorrhoids Denies PA,DM,CVA,Lung disease,renal dise ase Hard of hearing Surgical History Surgery Date(Month/Year) Cochlear implant 2 Stapedectomies-Dr. Villeda
== END 2025-01-05 15:19 | disposition home or self-care (01) ==
LOC: HO.HMCH 14:26
PROVIDERS: PCP Internal Medicine; Visit Provider Internal Medicine
DX: Z00.00 Encounter for general adult medical examination without abnormal findings (principal)

== ENCOUNTER 2025-01-08 09:14 | Outpatient (REF) | payer MEDICARE, SELFPAY ==
--- OUTSIDE RECORDS SUMMARY | 2025-01-08 09:22 | XMS_ITS | Patient Health Record ---
Author Organization [facility] Address [address] [place] [phone] Care Team Providers Care Beef Splitter Name Role Phone Oscar Rodriguez MD Primary Care Provider Orville Reyes [phone] Allergies Allergen (clinical drug ingredient) Drug/Non Drug [...] Status Risk Notes Problem Colon cancer screening (528075859) Colon cancer screening (V76.51) Active confirmed Problem History of adenomatous polyp of colon (218768639) History of adenomatous polyp of colon (V12.72) Active confirmed Plan Of Treatment Pending Test Test Name Order Date GI BIOPSY 12/21/2014 Future Test Test Name Order Date COLONOSCOPY 10/07/2014 Insurance Providers Payer Name Payer Address Payer Phone Subscriber Number Group Number Insured Name Patient Relationship to Insured Coverage Start Date Coverage End Date [facility] [place] [employer] [address] [place] [address] [id number]T Self - patient is the insured Medical (General) History Medical History History ICD Code 1 Tubular adenoma removed in 1993; colonoscopies in 1997 and 2009 neg. except for hyperplastic polyps, diverticulosis, and internal hemorrhoids Denies ND,DM,CVA,Lung disease,renal dise ase Hard of hearing Surgical History Surgery Date(Month/Year) Cochlear implant 2 Stapedectomies-Dr. Villeda
--- OUTSIDE RECORDS SUMMARY | 2025-01-08 09:22 | XMS_ITS | Clinical Summary ---
Author Organization [facility] Address [address] [place] [address] Care Team Providers Care Linux Architect Name Role Phone Unavailable Primary Care Provider Unavailabl e Social History Tobacco Use Types Packs/Day Years Used Date Smoking Tobacco: Never Assessed Sex and Gender Information Value Date Recorded Sex Assigned at Not on file Gender Identity Not on file Sexual Orientation Not on file Plan of Treatment Not on file
--- OUTSIDE RECORDS SUMMARY | 2025-01-08 09:22 | XMS_ITS | Data Portability ---
Author Organization [place] [facility] Address [address] [address] Care Team Providers Care Powder Truck Driver Name Role Phone DEVORAHZOEY TIM Primary Care Provider Assessment Encounter Date Assessment Date Assessment LastModified by Organization Details LastModified Time 05/20/2024 05/20/2024 Patient's right-sided cochlear implant site appears well-healed and well-tolerated long-term. He is still doing well with left-sided amplification. At this point we discussed the fact that his current external cochlear implant processors on the right are malfunctioning and are also deemed obsolete by the cap blocker and are no longer repairable. As such I have recommended that he obtain 2 new cochlear implant processors, which will be compatible with his CI 422 technology. I we will be happy to sign any authorizations or letters of medical necessity needed to make this happen. In light of the fact that he still getting good additional auditory information from the left ear, I recommended continued use of his left-sided hearing aid. If the hearing in the left ear deteriorates to the point where he is no longer getting auditory benefit from conventional amplification, we could consider placement of cochlear implant in the left ear in the future. [email or web address] Not available 05/20/2024 14:28:43 Plan of Treatment Reminders Order Date Submit Date Provider Last Modified By Organization Details Last Modified Time Details Appointments None record ed. Lab None record ed. Referral None record ed. Procedures None record ed. Surgeries None record ed. Imaging None record ed. Medication Orders None record ed. Patient TargetsNo targets recorded. Patient InstructionsNo instructions recorded. Reason for Referral None Reported. Problems Name Problem SNOMED Code Status Onset Date Resolution Date Notes Provider Name and Address Organization Details Recorded Time Sensorine ural hearing loss of bilateral ears [id number] Active 2016 Sensorineu ral hearing loss bilaterall y; Note: Date Diagnosed: 09/28/2014 12:25 PM (389.18) ; Start Date : 09/28/2014 Sensorine ural hearing loss, bilateral; Note: Date Diagnosed: 01/13/2017 3:02 PM (H90.3) Not Available [facility] 4 02:19:49 Problem Notes None recorded. Medical Equipment None Reported. Allergies Allergen ID Allergen Name Allergen Category Reaction Reaction Severity Criticality Documentation Date Start Date Code Code System Note Provider Name and Address Organization Details Recorded Time 00469 penicilli n V potassium medicatio n other Not available Not available 07/29/2023 5 RxNorm React ion: unkno wn, unspe cifie d;; Not Available [facility] 4 00:56:03 Medications Name Sig Start Date Stop Date Status Note LastModified by Organization Details LastModified Time clindamyc in HCl 300 mg capsule TAKE 1 CAPSULE BY MOUTH EVERY 8 HOURS FOR FOR 7 DAYS 05/20 completed Not Available Not Available Not Available meclizine 25 mg tablet 05/20 completed Medicati on ID: [id number] Br and Name: meclizin e Send Method: E-Prescr ibed Sub s Allowed: subs OK Medic ationGen ericName : meclizin e Not Available Not Available Not Available clotrimaz ole-betam ethasone 1 %-0.05 % topical cream APPLY TOPICALL Y TO THE AFFECTED AREA TWICE DAILY FOR 2 WEEKS active Not Available Not Available No t Available fluticaso ne propionat e 50 mcg/actua tion nasal spray,jayy pension 05/20 completed Medicati on ID: [id number] Du ration Value: 30 Brand Name: fluticas one Send Method: E-Prescr ibed Sub s Allowed: subs OK Medic ationGen ericName : fluticas one Not Available Not Available Not Available ciclopiro x 0.77 % topical cream APPLY TWICE DAILY TO RASH OF GROIN EVERY DAY NEEDED active Not Available Not Available No t Available Vitals None Recorded Social History None recorded. Functional Status None recorded. Mental Status None recorded. Family History Nothing Reported. Medical History Condition Response Allergies/Hayfever Y Past Encounters Encounter ID Performer Location Encounter Start Date Encounter Closed Date Diagnosis/Indication Diagnosis SNOMED-CT Code Diagnosis ICD10 Code Diagnosis IMO Codes Diagnosis Note [id number] BARBARA WORRELL MD ENT[facility] [address] [place] [address] 05/20/2024 13:34:05 05/20/2024 14:30:57 Sensorineural hearing loss of bilateral ears 061073265 H90.3 Cochlear p rosthesis in situ [id number] Z96.21 Health Concerns Section Related Observation LastModified by Organization Detai ls LastModified Time None Recorded Concern Status LastModified by Organization Details LastModified Time None Recorded Advance Directives Directive None Recorded Payers Insurance Date Sequence Insurance Name Policy Number Policy Pereira Covered Member ID Pereira Member ID Guarantor Name 05/20/2024 2 [place] [id number] Fredis Jenkins [id number] Fredis Jenkins 05/20/2024 1 MED[place] [facility] [employer] Fredis Jenkins [id number] Fredis Jenkins Notes Date Note Type Note Provider Name and Address Organization Details Recorded Time 05/20/2024 text/html 69-year-old male with sensorineural hearing loss. I implanted the right ear back in December 2012 with a Cochlear Nucleus CI 422 implant with slim straight electrode. He continues to get good results with the implant, but he has been having trouble with his processors. His processors are over 10 years old now and they are starting to malfunction, with abnormal auditory signal. He notes that the body of the processes are cracking. This processor has been deemed obsolete by the cap blocker and can no longer be repaired. Patient used to have significant dizziness preoperatively, but has not had any further episodes of vertigo since the implant went in. Patient reports he is still getting good additional information from the BTE hearing aid on the left. BARBARA WORRELL MD [address], [address], [facility] 05/20/2024 14:28:57
[2025-01-08 11:13] LABS: Hematocrit 45.2 % (42.0-52.0); Hemoglobin 15.5 g/dl (14.0-18.0); Mean Corpuscular HGB Conc 34.3 g/dl (31.0-36.0); Mean Corpuscular Hemoglobin 30.9 pg (27.0-33.0); Mean Corpuscular Volume 90.2 fL (80.0-98.0); NRBC Abs Auto 0.000 X10*3/uL (0.0-0.012); NRBC Pct Auto 0.0 /100WBC (0.0-0.2); Platelet Count 188 X10*3/uL (160-400); Red Blood Count 5.01 X10*6/uL (4.60-5.80); White Blood Count 6.8 X10*3/uL (4.8-10.8)
[2025-01-08 11:14] LABS: Appearance Urine Clear; Glucose Urine UA Negative (Negative); PH 5.5 (5.0-9.0); Specific Gravity - Urine 1.015 (1.005-1.025); UMIC TRIGGER UA YES
[2025-01-08 11:37] LABS: Alanine Aminotransferase 21 U/L (0-40); Albumin Level 4.6 g/dL (3.5-5.0); Alkaline Phosphatase 54 U/L (39-117); Anion Gap 12 (12-20); Aspartate Amino Transferase 20 U/L (5-37); Blood Urea Nitrogen 14 mg/dL (9-16); Calcium 9.5 mg/dL (8.4-10.2); Carbon Dioxide 28 mmol/L (22-29); Chloride 105 mmol/L (96-108); Cholesterol 170 mg/dL (<200); Estimated Glomerular Filt Rate > 60; HDL Cholesterol 59 mg/dL (>40); Potassium 4.3 mmol/L (3.3-5.1); Sodium 141 mmol/L (135-145); Total Protein 7.6 g/dL (6.5-8.0); Triglycerides 80 mg/dL (<150)
[2025-01-08 11:54] LABS: Thyroid Stimulating Hormone 1.10 uIU/mL (0.32-4.0)
== END 2025-01-08 09:15 | disposition home or self-care (01) ==
LOC: HO.HMGCLDS 09:14
PROVIDERS: PCP Internal Medicine; Visit Provider Internal Medicine
DX: Z00.00 Encounter for general adult medical examination without abnormal findings (principal); Z12.5 Encounter for screening for malignant neoplasm of prostate; Z13.29 Encounter for screening for other suspected endocrine disorder; Z13.6 Encounter for screening for cardiovascular disorders
CPT/HCPCS: 36415; 80048; 80061; 80076; 81001; 84153; 84443; 85027